=== PATIENT | female | born 1980 | race African-American/Black ===

== ENCOUNTER 2016-12-01 06:25 | Emergency (ER) | payer OTHER ==
[~2016-12-01] VITALS: Ht 165.1 cm; Wt 85.7 kg
[2016-12-01 06:39] VITALS: BP 145/77
--- NOTE | 2016-12-01 06:46 | NUR ---
RAVINDER SANCHEZ CALLED, OFFICER WILL BE DISPATCHED OUT TO SPEAK WITH THE PATIENT.
--- NOTE | 2016-12-01 07:03 | NUR ---
PT TAKEN TO BED 4
--- NOTE | 2016-12-01 07:13 | NUR ---
[employer] PD AT PT BEDSIDE.
--- NOTE | 2016-12-01 07:21 | NUR ---
BRENNA SCOTT AT BEDSIDE.
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
[2016-12-01] MEDS ORDERED: BACITRACIN OINT 500 UNITS/GM PKT TP ONE (07:25)
[2016-12-01 07:54] VITALS: BP 132/70
--- NOTE | 2016-12-01 07:54 | NUR ---
Patient discharged with v/s stable. Written and verbal after care instructions given and explained. Patient alert, oriented and verbalized understanding of instructions. Ambulatory with steady gait. All questions addressed prior to discharge. ID band removed. Patient advised to follow up with PMD. Rx of AUGMENTIN AND MUPIROCIN given. Patient educated on indication of medication including possible reaction and side effects. Opportunity to ask questions provided and answered.
== END 2016-12-01 07:54 | disposition home or self-care (01) ==
LOC: MED 06:25
DX: S71.152A Open bite, left thigh, initial encounter (principal); Y04.1XXA Assault by human bite, initial encounter; Y93.89 Activity, other specified; Y92.89 Other specified places as the place of occurrence of the external cause; Y99.8 Other external cause status
CPT/HCPCS: 99283